=== PATIENT | female | born 2000 ===

== ENCOUNTER 2025-02-07 13:43 | Outpatient (AMB) | payer OTHER, SELFPAY ==
--- NOTE | 2025-02-07 13:48 | A.OFFPC_ITS ---
Vital Signs 02/07/25 13:52 Height 5 ft 2.6 in Weight 99 lb 6 oz BMI 17.8 BP 130/70 Blood Pressure Location Lt brachial Position Sitting Pulse 85 Pulse Source Pulse Oximeter Temp 97.3 F Temp Source Temporal Artery Scan Pulse Oximetry (%) 95 Oxygen Delivery Method Room Air Intake Visit Reasons: new patient - needs referral to dermatology Intake Note: Patient is a new patient here to establish care for Wellness visit. Transferring care from [place] ([place]). Medical records have been requested and have not received. Cutter Head Sharpener Required: No Cnc Maintenance Technician: Not Required per policy Accompanied by: Self / Same As Patient Allergies clindamycin Allergy (Intermediate, Verified 02/07/25 13:58) Chest Pain Penicillins Allergy (Intermediate, Verified 02/07/25 13:58) Hives Medication List - Last Reconciled 02/07/25 by Zach Curran MD No Known Home Meds Tobacco use date assessed: 02/07/25 Dental Screening Dental Screen Date: 02/07/25 Did you have a dental visit in the last 12 months?: No Did you have a dental problem in the last 6 months where you did not have access to dental care?: No Was dental information given to patient?: No HPI HPI Comments History of Present Illness Details The patient is a 24-year-old female presenting with eczema and gastrointestinal issues. The patient reports developing eczema on her neck approximately six months ago, which became more pruritic. She has not used any medicated creams, only applying Vaseline or Aquaphor when it becomes flaky. The condition worsens when she visits [place], possibly due to environmental factors such as heat or saltwater. The patient also experiences chronic constipation and has undergone a colonoscopy, which revealed no abnormalities. She has had two surgeries for hemorrhoid removal, likely related to her constipation. Dietary modifications, including increased fiber and hydration, have been attempted, and she currently uses laxatives to manage symptoms. The patient has a history of genital herpes (HSV-1) but is not currently on antiviral medication. She reports no recent outbreaks, with the last occurrence being four to five months ago. She reports anxiety and insomnia, with difficulty falling asleep until 3:00 or 4:00 AM, a condition persisting for a year. She has not tried medication for anxiety but is interested in therapy. (Her PHQ9 and JOSR 7 were postivie). The patient has experienced recurrent yeast infections and bacterial vaginosis, previously managed with antibiotics and self-researched treatments like boric acid and probiotics. She continues to have symptoms despite these interventions. [facility] Surgical History (Updated 02/07/25 @ 14:00 by VIDA Garcia) History of hemorrhoidectomy Social History (Updated 02/07/25 @ 14:01 by VIDA Garcia) Housing: House Alcohol intake: current Alcohol intake frequency: a few times a month Patient Tobacco Use Status: Never used Tobacco e-Cigarette/Vaping Use: Never Used Second Hand Smoke Exposure: No service: No Current occupational status: employed Cognitive needs: No Hearing needs: No Vision needs: Yes (Glasses) Questionnaire PHQ-9 Over the last 2 weeks, how often have you been bothered by any of the following problems? 1. Little interest or pleasure in doing things: not at all 2. Feeling down, depressed, or hopeless: not at all 3. Trouble falling or staying asleep, or sleeping too much: more than half the days 4. Feeling tired or having little energy: more than half the days 5. Poor appetite or overeating: several days 6. Feeling bad about yourself - or that you are a failure or have let yourself or your family down: not at all 7. Trouble concentrating on things, such as reading the newspaper or watching television: several days 8. Moving or speaking so slowly that other people could have noticed. Or the opposite - being so fidgety or restless that you have been moving around a lot more than usual: not at all 9. Thoughts that you would be better off or of hurting yourself in some way: not at all Total score: 6 Depression Screening Interpretation: Positive Depression Screening Done: Yes Source: Developed by Drs. Damion Belle, Gely Carbajal, Ziyad Fajardo and colleagues, with an educational abimael from [employer]. Thrive Questionnaire Date Thrive assessed: 02/07/25 I am a: Patient What is your living situation today?: I have a steady place to live Within the past 12 months, did the food you bought not last and you didn't have the money to get more?: Never true Within the past 12 months, did you worry whether your food would run out before you got money to buy more?: Never true Do you have trouble paying for medicines?: No Do you have trouble getting transportation to medical appointments?: No Do you have trouble paying your heating and electricity bill?: No Do you have trouble taking care of your child, family member or friend?: No Do you have trouble with day-to-day activities such as bathing, preparing meals, shopping, managing finances, etc.?: No Are you currently unemployed and looking for a job?: No Are you interested in more education?: No Please select the resources that you would like help with: None Currently or been in a relationship where the following occur: No concerns reported THRIVE Score: 0 AUDIT C Alcohol Use Questionnaire (AUDIT-C) 1. How often do you have a drink containing alcohol?: 2-4 times a month 2. How many drinks containing alcohol do you have on a typical day when you are drinking?: 3 or 4 3. How often do you have six or more drinks on one occasion?: Less than monthly Total Score: 4 JOSR-7 AMB Questionnaire JOSR-7 Date JOSR - 7 assessed: 02/07/25 Feeling nervous, anxious, or on edge: 3 = Nearly every day Not being able to stop or control worryin = Nearly every day Worrying too much about different things: 3 = Nearly every day Trouble relaxin = More than half the days Being so restless that it is hard to sit still: 1 = Several days Becoming easily annoyed or irritable: 1 = Several days Feeling afraid as if something awful might happen: 1 = Several days Total JOSR-7 score (0-4 normal; 5-9 mild; 10-14 moderate; 15-21 severe): 14 Source: Developed by Drs. Damion Belle, Gely Carbajal, Ziyad Fajardo and colleagues, with an educational abimael from [employer]. Physical exam (Primary Care) Vital Signs: Last Vital Signs Temp 97.3 F 02/07/25 13:52 Pulse 85 02/07/25 13:52 BP 130/70 02/07/25 13:52 Pulse Ox 95 02/07/25 13:52 Oxygen Delivery Method Room Air 02/07/25 13:52 BMI result Body Mass Index 17.8 Tobacco/Smoking Status: Tobacco use Status Tobacco use date assessed 02/07/25 02/07/25 14:02 Patient Tobacco Use Status Never used Tobacco 02/07/25 14:02 e-Cigarette/Vaping Use Never Used 02/07/25 14:02 PHQ-9: PHQ-9 Score PHQ-9: Total score 6 02/07/25 16:24 Depression Screening Interpretation: Positive Thrive Assessment: Date of Thrive Assessment Date Thrive assessed 02/07/25 02/07/25 14:02 Currently or been in a relationship where the following occur: No concerns reported Coding Level of Care Code New Pt Level 5 (14820) Diagnoses Anxiety F41.9 Current mild episode of major depressive disorder without prior episode F32.0 Major depression recurrence: single episode Active/Remission status: currently active Major depression episode severity: mild Eczema, unspecified type L30.9 Eczema type: unspecified Health maintenance examination Z00.00 Herpes simplex vulvovaginitis A60.04 Herpes simplex infection site: vulvovaginitis Bacterial vaginosis N76.0; B96.89 Primary insomnia F51.01 Insomnia type: primary Weight loss R63.4 Constipation, unspecified constipation type K59.00 Constipation type: unspecified constipation type Assessment & Plan Assessment & Plan (1) Anxiety: Code(s): F41.9 - Anxiety disorder, unspecified Category: Medical Plan: Therapy. Advised on cutting down usage of MJ. (2) MDD (major depressive disorder): Code(s): F32.9 - Major depressive disorder, single episode, unspecified Category: Medical Qualifiers: Major depression recurrence: single episode Active/Remission status: currently active Major depression episode severity: mild Qualified Code(s): F32.0 - Major depressive disorder, single episode, mild Plan: Behavioral therapy referral. Denies any SI, or HI. (3) Eczema: Code(s): L30.9 - Dermatitis, unspecified Category: Medical Qualifiers: Eczema type: unspecified Qualified Code(s): L30.9 - Dermatitis, unspecified Plan: Eczema relief cream ordered. Dermatology referral placed. (4) Health maintenance examination: Code(s): Z00.00 - Encounter for general adult medical examination without abnormal findings Category: Medical Plan: SILK SCREEN PRINTING RACKER referral. Labs ordered today: CBC, CMP, TSH. (5) Genital herpes: Code(s): A60.00 - Herpesviral infection of urogenital system, unspecified Category: Medical Qualifiers: Herpes simplex infection site: vulvovaginitis Qualified Code(s): A60.04 - Herpesviral vulvovaginitis Plan: Acyclovir 400 mg BID daily prescribed. She had an outbreak every month for the past year. (6) Bacterial vaginosis: Code(s): N76.0 - Acute vaginitis; B96.89 - Other specified bacterial agents as the cause of diseases classified elsewhere Category: Medical Plan: The patient will be referred to an OBGYN for further evaluation and management of recurrent yeast infections and bacterial vaginosis. The OBGYN will determine the need for chronic antibiotic therapy or alternative treatments. (7) Insomnia: Code(s): G47.00 - Insomnia, unspecified Category: Medical Qualifiers: Insomnia type: primary Qualified Code(s): F51.01 - Primary insomnia Plan: Behavioral therapy referral. (8) Weight loss: Code(s): R63.4 - Abnormal weight loss Category: Medical Plan: TSH. (9) Constipation: Comment: With hemorrhoids. Code(s): K59.00 - Constipation, unspecified Category: Medical Qualifiers: Constipation type: unspecified constipation type Qualified Code(s): K59.00 - Constipation, unspecified Plan: Miralax. Plan During the visit, I discussed with the patient the management of her eczema, recommending a referral to dermatology and the use of a steroid cream in the interim. We also talked about her constipation management, emphasizing dietary changes and laxative use, with a potential referral to gastroenterology if symptoms worsen. For her genital herpes, I advised keeping antiviral medication on hand for outbreaks, with consideration for daily use if outbreaks become frequent. We discussed her anxiety and insomnia, and I provided a list of therapy providers, encouraging her to pursue therapy as a first step. Regarding her recurrent yeast infections and bacterial vaginosis, I recommended a referral to an OBGYN for further evaluation and management. Orders: Orders Complete Blood Count no Diff Today Z00.00 - Encounter for general adult medical examination without abnormal findings Comprehensive Met. Panel Today Z00.00 - Encounter for general adult medical examination without abnormal findings TSH reflex Free T4 Today R63.4 - Abnormal weight loss Referrals Behavioral Health Referral F32.9 - Major depressive disorder, single episode, unspecified, F41.9 - Anxiety disorder, unspecified Dermatology Referral L30.9 - Dermatitis, unspecified GENERAL UTILITY MACHINE OPERATOR Referral Z00.00 - Encounter for general adult medical examination without abnormal findings Medications: New acyclovir 400 mg PO BID 180 tabs 3RF 3 months polyethylene glycol 3350 (Miralax) 17 grams PO DAILY PRN 238 grams 3RF constipation 30 days colloidal oatmeal 1% (Eucerin Eczema Relief) 1 appl topical BID PRN 226 grams 3RF Itching 30 days
[2025-02-07 13:52] VITALS: BP 130/70; PULSE 85; TEMP 36.3; O2SAT 95; BMI 17.8
--- OUTSIDE RECORDS SUMMARY | 2025-02-07 17:34 | XMS_ITS ---
Author Name [facility] Organization Unknown Care Team Organization Name Specialty Phone Email Start Date End Da te [facility] Mariposa Davey [facility] 02/03/2023 01/16/2024 [facility] Monique Keith [facility] 04/06/2022 01/16/2024
== END 2025-02-07 14:28 | disposition home or self-care (01) ==
LOC: HO.HMCH 13:44
PROVIDERS: Visit Provider Internal Medicine
DX: F41.9 Anxiety disorder, unspecified (principal); F32.0 Major depressive disorder, single episode, mild; L30.9 Dermatitis, unspecified; A60.04 Herpesviral vulvovaginitis; N76.0 Acute vaginitis; B96.89 Other specified bacterial agents as the cause of diseases classified elsewhere; F51.01 Primary insomnia; R63.4 Abnormal weight loss; K59.00 Constipation, unspecified